=== PATIENT | female | born 1970 | race Caucasian/White ===

== ENCOUNTER 2017-03-05 16:49 | Emergency (ER) | payer BC, OTHER ==
[~2017-03-05] VITALS: Ht 170.2 cm; Wt 106.2 kg
[2017-03-05] MEDS ORDERED: ONDANSETRON 2MG/ML, 2ML ONE (17:22)
[2017-03-05] MEDS ORDERED: ONDANSETRON 2MG/ML, 2ML IVPush ONE (17:30)
[2017-03-05] MEDS ORDERED: MORPHINE SULFATE 4 MG/ML, 1ML IVPush PRN (17:30)
[2017-03-05] MEDS ORDERED: SODIUM CHLORIDE FLUSH 10ML SYR IVF ONE (17:30)
[2017-03-05] MEDS ORDERED: SODIUM CHLORIDE 0.9% 1,000ML IVBOLUS ONE (17:30)
[2017-03-05 17:57] VITALS: BP 134/63
[2017-03-05 18:20] LABS: BLOOD UREA NITROGEN 15 mg/dL (7-18)
[2017-03-05 18:26] LABS: ASPARTATE AMINO TRANSFERASE 15 U/L (15-37)
[2017-03-05] MEDS ORDERED: OMNIPAQUE 350 MG/ML, 100ML BOTTLE ONE (19:35)
== END 2017-03-05 21:06 | disposition home or self-care (01) ==
LOC: ED 19:23
DX: N83.02 Follicular cyst of left ovary (principal)
CPT/HCPCS: 36415; 74177; 80053; 81001; 83690; 84703; 85025; 99285; Q9967

== ENCOUNTER 2017-03-06 14:59 | Observation (INO) | payer OTHER ==
[~2017-03-06] VITALS: Ht 170.2 cm; Wt 106.5 kg
[2017-03-06] MEDS ORDERED: SODIUM CHLORIDE FLUSH 10ML SYR IVF ONE (15:30)
[2017-03-06] MEDS ORDERED: morphine SULFATE 10 MG/ML, 1ML IVPush ONE (15:30)
[2017-03-06] MEDS ORDERED: ONDANSETRON 2MG/ML, 2ML IVPush ONE (15:30)
[2017-03-06] MEDS ORDERED: SODIUM CHLORIDE 0.9% 1,000ML IVBOLUS ONE (15:30)
[2017-03-06] MEDS ORDERED: MORPHINE SULFATE 4 MG/ML, 1ML ONE ×2 (15:43→15:52)
[2017-03-06] MEDS ORDERED: ONDANSETRON 2MG/ML, 2ML ONE ×3 (15:43→20:21)
[2017-03-06 15:55] LABS: BLOOD UREA NITROGEN 13 mg/dL (7-18)
[2017-03-06] MEDS ORDERED: EPINEPHRINE 1 MG/ML, 1ML ONE (20:01)
[2017-03-06] MEDS ORDERED: SILVER NITRATE STICK TP ONE (20:01)
[2017-03-06] MEDS ORDERED: BUPIVACAINE/PF 0.25% ONE (20:01)
[2017-03-06] MEDS ORDERED: SCOPOLAMINE PATCH, 1.5MG PATCH.TD72 TD ONE (20:08)
[2017-03-06] MEDS ORDERED: FENTANYL PF 250 MCG/5ML ONE (20:13)
[2017-03-06] MEDS ORDERED: ROCURONIUM 10 MG/ML ONE (20:21)
[2017-03-06] MEDS ORDERED: PROPOFOL 10 MG/ML, 50ML ONE (20:21)
[2017-03-06] MEDS ORDERED: METOCLOPRAMIDE 5 MG/ML, 2ML ONE (20:21)
[2017-03-06] MEDS ORDERED: SUCCINYLCHOLINE 20 MG/ML, 10ML ONE (20:21)
[2017-03-06] MEDS ORDERED: CEFAZOLIN 1,000 MG ONE (20:21)
[2017-03-06] MEDS ORDERED: DEXAMETHASONE 4 MG/ML, 1ML ONE (20:21)
[2017-03-06] MEDS ORDERED: LABETALOL 5MG/ML, 20ML IV PRN (21:00)
[2017-03-06] MEDS ORDERED: PROMETHAZINE 25 MG/ML, 1ML IV PRN (21:00)
[2017-03-06] MEDS ORDERED: MEPERIDINE/PF 25MG/0.5ML IVPush PRN (21:00)
[2017-03-06] MEDS ORDERED: HYDROmorphone 1 MG/ML, 1ML IV PRN (21:00)
[2017-03-06] MEDS ORDERED: FENTANYL PF 100 MCG/2ML IV PRN (21:00)
[2017-03-06] MEDS ORDERED: ONDANSETRON 2MG/ML, 2ML IVPush PRN (21:00)
[2017-03-06] MEDS ORDERED: hydrALAzine 20 MG/ML, 1ML IV PRN (21:00)
[2017-03-06] MEDS ORDERED: ACETAMINOPHEN 325 MG TABLET PO PRN (21:00)
[2017-03-06] MEDS ORDERED: OXYcodone 5 MG/5 ML ORAL.SOL UDC PO PRN (21:00)
[2017-03-06] MEDS ORDERED: MIDAZOLAM 1 MG/ML, 2ML IV PRN (21:00)
[2017-03-06] MEDS ORDERED: FENTANYL PF 100 MCG/2ML ONE (21:41)
[2017-03-06] MEDS ORDERED: OXYcodone 5 MG/5 ML ORAL.SOL UDC ONE (21:41)
[2017-03-06] MEDS ORDERED: ACETAMINOPHEN 650 MG/20.3 ML UDC ONE (21:41)
[2017-03-06] MEDS ORDERED: HYDROmorphone 1 MG/ML, 1ML ONE (22:17)
[2017-03-06] MEDS ORDERED: PROMETHAZINE 25 MG/ML, 1ML ONE (22:23)
[2017-03-06 23:15] VITALS: BP 130/78
[2017-03-06] MEDS ORDERED: OXYcodone/APAP 5/325MG TABLET PO PRN (23:30)
[2017-03-06] MEDS ORDERED: morphine SULFATE 10 MG/ML, 1ML IV PRN (23:30)
[2017-03-06] MEDS ORDERED: ONDANSETRON 2MG/ML, 2ML IV PRN (23:30)
[2017-03-07 01:23] VITALS: BP 110/69
[2017-03-07] MEDS: SODIUM CHLORIDE 0.9% 1,000 ML IV SCH ×2 (03:25→07:30)
[2017-03-07 05:07] LABS: BLOOD UREA NITROGEN 12 mg/dL (7-18)
[2017-03-07 08:00] VITALS: BP 125/86
[2017-03-07 10:13] VITALS: BP 108/65
== END 2017-03-07 10:55 | disposition home or self-care (01) ==
LOC: ED 16:55 → EDIP 18:36 → 4NOR 22:55
PROVIDERS: ADMIT Student in an Organized Health Care Education/Training Program; ATTEND Student in an Organized Health Care Education/Training Program
DX: N83.202 Unspecified ovarian cyst, left side (principal); R10.2 Pelvic and perineal pain; R19.09 Other intra-abdominal and pelvic swelling, mass and lump; D25.9 Leiomyoma of uterus, unspecified
CPT/HCPCS: 36415; 58661; 76830; 80048; 82040; 85025; 88305; 96361; 96374; 96375; 99285; G0378; J0171; J0330; J0690; J1100; J1170; J2270; J2405; J2550; J2704; J2765; J3010; J3490; J7030